=== PATIENT | female | born 2000 | race Caucasian/White ===

== ENCOUNTER → 2021-02-18 | Outpatient (CLI) | payer OTHER ==
--- NOTE | 2021-02-18 09:31 | REP ---
INDICATION: LT BREAST LUMP; N63.22 LT BREAST MASS. COMPARISON: No comparison breast imaging. TECHNIQUE: Targeted left breast sonography is carried out in initially. At my request, diagnostic left breast mammography is performed. A skin marker is affixed to the skin at the site of the palpable lump for today's mammographic images. CC, true mL, and MLO views are obtained with 3D tomography. This mammogram was interpreted with the aid of an FDA-approved computer-aided detection system. FINDINGS: On mammography, extremely dense breast parenchyma is observed. This may inhibit the sensitivity mammography. At the site of the skin marker, there is a nodular densities whose margins are partially obscured by adjacent dense parenchyma. This projects in the superomedial quadrant and measures approximately 8 mm in greatest diameter. Breast parenchyma is otherwise unremarkable. The Volpara volumetric breast density pattern is D. Targeted ultrasound: Targeted left breast sonography is performed the area the palpable lump in the 11 o'clock position of the left breast. Heterogeneous background echotexture is seen. At the site of the palpable lump there is a hypoechoic solid irregularly-shaped lesion measuring 1.4 x 0.8 x 1.2 cm. There is enhanced through transmission. Its margins are incompletely defined on sonography. This is consistent with but not specific for fibroadenoma. IMPRESSION: BIRADS/ACR category 4 suspicious left breast mammographic and sonographic findings. Possible fibroadenoma versus other solid lesion at site of the palpable lump in the left breast. This patient's Tyrer-Cuzick lifetime breast cancer risk assessment score is 22.3%. RECOMMENDATION: Ultrasound-guided needle biopsy of the palpable lump at 11 o'clock in the left breast with marker clip placement and post clip placement left breast mammography recommended.. The patient letter being requested is M4 dense. <Electronically signed by Buck Louis > 02/18/21 [id number]
== END ==
LOC: M WHC 08:02
PROVIDERS: ATTEND Nurse Practitioner Family
DX: N63.22 Unspecified lump in the left breast, upper inner quadrant (principal)
CPT/HCPCS: 76642; 77065; G0279

== ENCOUNTER → 2021-03-03 | Outpatient (CLI) | payer OTHER ==
[~2021-03-03] MED LIST: ADDE20CA3 PO; PROZ20CA11 PO
[2021-03-03 13:56] VITALS: BP 118/72
--- NOTE | 2021-03-03 22:09 | ROOPDOC ---
[facility] Report Of Operation Report of Operation DATE OF PROCEDURE: 03/03/21 DIAGNOSIS: left breast suspicious lesion PROCEDURE: ultrasound guided biopsy of the left breast suspicious lesion with clip placement SURGEON: Jenifer Lindsay BLOOD LOSS: minimal COMPLICATIONS: none Lidocaine 1% LOT [id number] Expiration 09/2024 Sodium Bicarbonate 8.4% LOT [id number] Expiration 09/2021 Hydromark clip LOT [id number] Expiration 11/2023 SHAPE: 4 Bx device: BARD [id number] x10 cm LOT [id number] Expiration 11/2023 Informed consent was obtained. The most common risk and possible complications including bleeding, hematoma, bruising, infection, injury to surrounding structures were explained to the patient and the patient expressed u nderstanding. Patient was placed on the bed in the supine position. Appropriate time out was done stating patients name, date of , and the procedure to be performed. Patient confirmed the location of palpable mass in the left breast located at 11:4 CFN. The left breast was prepped and draped in the usual fashion. The ultrasound was used to confirm the location of the lesion in the left breast at 11:00 4 centimeters from the nipple. Plain Lidocaine 1% and 8.4% sodium bicarbonate 10:1 mix was used to anesthetize the skin, the biopsy site and tissues along the anticipated biopsy tract. Small skin incision was made with blade number 11. BARD Marquee 14G cannula with introducer ([id number]) was inserted through the incision and advanced under the ultrasound guidance to position immediately adjacent to the lesion. Next, the introducer was removed and BARD Marquee 14G biopsy device was places in the cannula. Pre-biopsy imaging, and post-biopsy imaging were captured. Five good core biopsies were taken at various levels of the lesion. Specimen was placed in formaldehyde, labeled with appropriate biopsy site and patients name, and sent to pathology for evaluation. Next, the biopsy device was withdrawn and a clip introducer was inserted into the biopsy site via the cannula. SHAPE 4 Hydromark clip was deployed under sonographic guidance. Post-clip placement image was captured. Manual pressure over the biopsy cavity and tract was held after the clip introducer was withdrawn. No bleeding was noted upon removal of the pressure. Post-biopsy mammogram of the left breast was obtained and showed clip in expected position. Postprocedural dressing was placed. Patient tolerated procedure well. Discharge instructions were discussed with the patient and the patient expressed understanding. JENIFER LINDSAY DO Mar 03, 2021 22:09
== END ==
LOC: M WHCPRO 06:28
PROVIDERS: ATTEND Surgery
DX: N60.82 Other benign mammary dysplasias of left breast (principal)